=== PATIENT | female | born 1960 | race Asian ===

== ENCOUNTER 2023-10-25 01:43 | Emergency (ER) | payer BC, OTHER ==
[~2023-10-25] VITALS: Ht 154.9 cm; Wt 55.9 kg
[2023-10-25] MEDS ORDERED: ibuprofen 200mg tablet PO ONE (02:10)
[2023-10-25] MEDS ORDERED: ondansetron/PF 4mg/2ml inj IV ONE (02:20)
[2023-10-25] MEDS ORDERED: normal saline 1000ML IV soln IVB ONE (02:20)
[2023-10-25] MEDS ORDERED: ketorolac trometh. 30mg/ml inj. IV ONE (02:20)
[2023-10-25 02:31] LABS: BILIRUBIN,URINE NEGATIVE (Neg); CLARITY,URINE CLOUDY (Clear); COLOR,URINE YELLOW (Yellow); GLUCOSE, URINE NEGATIVE (Neg); KETONES,URINE NEGATIVE (Neg); LEUKOCYTE ESTERASE ,URINE LARGE (Neg); NITRITES, URINE POSITIVE (Neg); OCCULT BLOOD,URINE TRACE-INTACT (Neg); PH,URINE 7.5 (4.8-8.0); PROTEIN,URINE TRACE mg/dl (Neg)
[2023-10-25 02:32] LABS: UA COLLECTION TYPE CLN CATCH MIDSTREAM
[2023-10-25 02:49] LABS: BACTERIA,URINE 4+ /HPF (Neg); MUCUS STRANDS NONE SEEN /LPF (Neg); SQUAMOUS EPITHELIAL CELL,UR FEW /LPF (FEW); TRANSITIONAL EPI CELLS,URINE FEW /HPF
[2023-10-25 02:50] LABS: WBC,URINE TNTC /HPF (0-4)
[2023-10-25 03:06] LABS: BASOPHILS % (AUTO) 0.3 % (0-1); EOSINOPHILS % (AUTO) 0.2 % (0-6); HEMATOCRIT 29.5 % (35.0-45.0); HEMOGLOBIN 9.8 g/dl (12.0-16.0); LYMPHOCYTES % (AUTO) 11.8 % (21-51); MEAN CORPUSCULAR HEMOGLOBIN 29.3 PG (27.0-31.0); MEAN CORPUSCULAR HGB CONC 33.1 g/dL (33.0-36.5); MEAN CORPUSCULAR VOLUME 88.5 FL (78-98); MEAN PLATELET VOLUME 8.4 FL (7.4-10.4); MONOCYTES # (AUTO) 0.7 X10'3 (0-0.9); MONOCYTES % (AUTO) 8.8 % (2-12); NEUTROPHILS # (AUTO) 6.4 X10'3 (1.8-7.7); NEUTROPHILS % (AUTO) 78.9 % (42-75); PLATELET COUNT 252 X10'3 (140-440); RED BLOOD COUNT 3.34 X10'6 (4.20-5.60); RED CELL DISTRIBUTION WIDTH 14.8 % (11.5-14.5); WHITE BLOOD COUNT 8.1 X10'3 (4.5-11.0)
[2023-10-25] MEDS ORDERED: CefTRIAXone 2gm/D5W 50ml BAG 50 ML IV ONE (03:13)
[2023-10-25 03:53] LABS: ALANINE AMINOTRANSFERASE 92 U/L (12-78); ALBUMIN 3.2 G/DL (3.4-5.0); ALKALINE PHOSPHATASE 59 IU/L (46-116); ANION GAP 6 (8-16); ASPARTATE AMINO TRANSFERASE 102 U/L (10-37); BILIRUBIN,TOTAL 0.4 MG/DL (0.1-1.0); BLOOD UREA NITROGEN 10 MG/DL (7-18); BUN/CREATININE RATIO 14.3 (10.0-20.0); CALCIUM 8.2 MG/DL (8.5-10.1); CHLORIDE 101 MMOL/L (99-107); GLUCOSE 105 MG/DL (70-104); LIPASE 57 U/L (16-77); POTASSIUM 3.4 MMOL/L (3.5-5.1); SODIUM 133 MMOL/L (135-145); TOTAL CARBON DIOXIDE 25.7 MMOL/L (24-32); TOTAL PROTEIN 6.5 G/DL (6.4-8.2); eCRCL 61 ML/MIN; eGFR 84 ML/MIN
[2023-10-25 03:57] VITALS: BP 117/71; PULSE 90; RESP 16; TEMP 99; O2SAT 98
[2023-10-25] MEDS ORDERED: ONDA4TAB12 PO (03:58)
[2023-10-25] MEDS ORDERED: CEFU500T66 PO (03:58)
== END 2023-10-25 04:14 | disposition home or self-care (01) ==
LOC: ER 01:47
DX: N39.0 Urinary tract infection, site not specified (principal); R51.9 Headache, unspecified; R11.10 Vomiting, unspecified; R10.30 Lower abdominal pain, unspecified; E78.00 Pure hypercholesterolemia, unspecified; Z88.8 Allergy status to other drugs, medicaments and biological substances; Z79.899 Other long term (current) drug therapy; Z90.710 Acquired absence of both cervix and uterus
CPT/HCPCS: 36415; 80053; 81001; 83690; 85025; 87088; 87502; 87503; 96361; 96365; 96375; 99284; J0696; J1885; J2405; J7030; 87077; 87186

== ENCOUNTER 2024-05-26 05:16 | Emergency (ER) | payer BC, OTHER ==
[~2024-05-26] VITALS: Ht 154.9 cm; Wt 63.6 kg
[~2024-05-26 05:16] MED LIST: CEFU500T66 PO; ONDA-243 PO
[2024-05-26 05:33] VITALS: TEMP 97.3
[2024-05-26 07:33] LABS: BASOPHILS # (AUTO) 0.1 X10'3 (0-0.2); EOSINOPHILS # (AUTO) 0.2 X10'3 (0-0.9); EOSINOPHILS % (AUTO) 3.6 % (0-6); HEMATOCRIT 33.1 % (35.0-45.0); HEMOGLOBIN 10.8 g/dl (12.0-16.0); LYMPHOCYTES % (AUTO) 39.8 % (21-51); MEAN CORPUSCULAR HEMOGLOBIN 29.7 PG (27.0-31.0); MEAN CORPUSCULAR HGB CONC 32.6 g/dL (33.0-36.5); MEAN CORPUSCULAR VOLUME 90.9 FL (78-98); MONOCYTES # (AUTO) 0.4 X10'3 (0-0.9); MONOCYTES % (AUTO) 7.1 % (2-12); NEUTROPHILS # (AUTO) 2.4 X10'3 (1.8-7.7); NEUTROPHILS % (AUTO) 48.5 % (42-75); PLATELET COUNT 307 X10'3 (140-440); RED BLOOD COUNT 3.65 X10'6 (4.20-5.60); RED CELL DISTRIBUTION WIDTH 16.6 % (11.5-14.5); WHITE BLOOD COUNT 4.9 X10'3 (4.5-11.0)
[2024-05-26 07:36] LABS: ALANINE AMINOTRANSFERASE 29 U/L (12-78); ALBUMIN 3.9 G/DL (3.4-5.0); ALKALINE PHOSPHATASE 30 IU/L (46-116); ANION GAP 5 (8-16); ASPARTATE AMINO TRANSFERASE 28 U/L (10-37); BILIRUBIN,TOTAL 0.3 MG/DL (0.1-1.0); BLOOD UREA NITROGEN 17 MG/DL (7-18); CALCIUM 9.5 MG/DL (8.5-10.1); CHLORIDE 103 MMOL/L (99-107); CREATININE 0.81 MG/DL (0.40-0.90); GLUCOSE 92 MG/DL (70-104); POTASSIUM 3.1 MMOL/L (3.5-5.1); SODIUM 139 MMOL/L (135-145); TOTAL CARBON DIOXIDE 30.9 MMOL/L (24-32); TOTAL PROTEIN 7.8 G/DL (6.4-8.2); eCRCL 52 ML/MIN; eGFR 71 ML/MIN
[2024-05-26 07:49] LABS: HIV ANTIBODY 1&2 RAPID NON-REACTIVE (Neg)
[2024-05-26] MEDS ORDERED: DOLU50TA PO (08:37)
[2024-05-26] MEDS ORDERED: EMTR1TAB24 PO (08:37)
[2024-05-26] MEDS: hepatitis B virus vaccine/PF 20mcg/ml vaccine***IM only IMVAC ONE (08:47)
[2024-05-26 08:48] VITALS: BP 133/79; PULSE 74; RESP 16; O2SAT 98
[2024-05-29 07:37] LABS: HBSAG SCREEN Negative (Negative); HEP B CORE AB, IGM Negative (Negative); HEP B CORE AB, TOT Negative (Negative); HEPATITIS C VIRUS ANTIBODY Non Reactive (Non Reactive)
== END 2024-05-26 08:49 | disposition home or self-care (01) ==
LOC: ER 05:17
DX: S61.232A Puncture wound without foreign body of right middle finger without damage to nail, initial encounter (principal); E78.00 Pure hypercholesterolemia, unspecified; F17.200 Nicotine dependence, unspecified, uncomplicated; Z88.8 Allergy status to other drugs, medicaments and biological substances; Z79.2 Long term (current) use of antibiotics; Z79.899 Other long term (current) drug therapy; Z90.710 Acquired absence of both cervix and uterus; W27.3XXA Contact with needle (sewing), initial encounter; Y93.89 Activity, other specified; Y92.89 Other specified places as the place of occurrence of the external cause; Y99.8 Other external cause status
CPT/HCPCS: 36415; 80053; 85025; 86592; 86703; 86704; 86705; 86803; 87340; 87522; 90471; 90746; 99283